=== PATIENT | female | born 1955 | race Caucasian/White ===

== ENCOUNTER → 2017-06-26 | Outpatient (CLI) | payer OTHER, MEDICARE ==
[~2017-06-26] MED LIST: AMOX-291 PO; HYDR25TA6 PO; HYDROCODONE PO; LEVO300T4 PO; LISI-465 PO; MULT-6 PO; WARF2.5T PO; WARF5TAB PO
== END ==
LOC: CFH 10:14
PROVIDERS: ATTEND Family Medicine
DX: Z12.31 Encounter for screening mammogram for malignant neoplasm of breast (principal); Z80.3 Family history of malignant neoplasm of breast
CPT/HCPCS: 77067

== ENCOUNTER → 2018-07-02 | Outpatient (CLI) | payer OTHER, MEDICARE | END | disposition home or self-care (01) | LOC: CFH 12:12 | PROVIDERS: ATTEND Family Medicine | DX: Z12.31 Encounter for screening mammogram for malignant neoplasm of breast (principal) | CPT/HCPCS: 77063; 77067 ==

== ENCOUNTER → 2020-07-13 | Outpatient (CLI) | payer MEDICARE, OTHER ==
[~2020-07-13] MED LIST changes: -WARF2.5T PO; +WARF2.5T2 PO; -WARF5TAB PO; +WARF5TAB2 PO
== END | disposition home or self-care (01) ==
LOC: CFH 11:12
PROVIDERS: ATTEND Family Medicine
DX: Z12.31 Encounter for screening mammogram for malignant neoplasm of breast (principal); R92.1 Mammographic calcification found on diagnostic imaging of breast
CPT/HCPCS: 77063; 77067